=== PATIENT | female | born 1995 | race Caucasian/White ===

== ENCOUNTER 2018-07-03 07:33 | Day surgery (SDC) | payer OTHER ==
[2018-07-02 11:57] VITALS: BMI 21.1
[2018-07-03] MEDS ORDERED: ceFAZolin SODIUM 1 GM VIAL ONE (08:46)
[2018-07-03] MEDS ORDERED: BUPIVACAINE HCL/PF 0.5% (5MG/ML) 10 ML VIAL ONE (10:19)
[2018-07-03] MEDS ORDERED: LIDOCAINE HCL 1%, 10 MG/ML (20ML VIAL) ONE (10:22)
[2018-07-03] MEDS ORDERED: MIDAZOLAM HCL 2 MG/2 ML SINGLE DOSE VIAL ONE ×4 (10:34→10:49)
[2018-07-03] MEDS ORDERED: ceFAZolin SODIUM 1 GM VIAL IVPB ONE (10:52)
[2018-07-03] MEDS ORDERED: PROPOFOL 20 ML ONE (10:53)
[2018-07-03] MEDS ORDERED: BUPIVACAINE HCL/PF 0.5% (5MG/ML) 10 ML VIAL IJ ONE (11:34)
[2018-07-03] MEDS ORDERED: oxyCODONE HCL 5 MG TABLET PO PRN ×2 (11:57)
[2018-07-03] MEDS ORDERED: ONDANSETRON 4 MG/2 ML VIAL IVPB PRN (11:57)
--- NOTE | 2018-07-03 11:59 | OP ---
Operative Note - Note: Operative Date: 07/03/18 Pre-Operative Diagnosis: left hand dorsal gnaglion cyst Operation: excision left wrist dorsal ganglion cyst Post-Operative Diagnosis: Same as Pre-op Surgeon: Chemo Saini
[2018-07-03] MEDS ORDERED: LACTATED RINGERS SOLUTION 1,000 ML IV SCH (12:00)
--- NOTE | 2018-07-03 12:22 | OP ---
DATE OF OPERATION: 07/03/2018 TITLE OF PROCEDURE: Left wrist dorsal ganglion cyst excision. PREOPERATIVE DIAGNOSIS: Left wrist dorsal ganglion cyst. POSTOPERATIVE DIAGNOSIS: Left wrist dorsal ganglion cyst. ATTENDING SURGEON: Chemo Saini MD ASSISTANTS: There were no assistants. ANESTHESIA: General endotracheal anesthesia. The patient is seen in the holding area. The lesion is palpated and marked directly over the lesion on the appropriate left wrist. She is then brought to the operating room and placed in the supine position. Sequential compression stockings were applied. A gram of Ancef was given preoperatively. She is prepped and draped in standard surgical fashion. Her position is carefully checked by surgical and anesthesia teams. Tourniquet is placed. The hand is elevated, Esmarch exsanguinated. Tourniquet is elevated to 220 mmHg pressure. Under tourniquet the dissection is performed. Total tourniquet time for this case is 21 minutes. The transverse incision is made which is 9 mm in its length. The cyst is immediately visible in subcutaneous space. It appears to be coming off of the extensor retinaculum. It is dissected easily off the extensor retinaculum and through the extensor retinaculum. A small rent is identified after excision of the cyst which is repaired with a 4-0 Vicryl suture on the extensor retinaculum. All extensor tendons in the wound are visualized to be intact. The skin is then closed after copious irrigation with normal saline. The closure is performed with 1 single buried deep dermal 4-0 Vicryl suture followed by a series of interrupted simple 5-0 nylon suture. Tourniquet is released. The dressing is applied with Steri-Strips, bulky Kerlix dressing. Hand is elevated. All fingers are pink and viable at the end of the procedure. Patient awoken from anesthesia, transferred to recovery without complication. Ivan [id number]
[2018-07-03 14:23] VITALS: BP 101/61; PULSE 86; TEMP 98
--- NOTE | 2018-07-06 08:52 | PATH ---
Surgical Pathology Report Patient Name: SAMIR ZIEGLER Med. Rec. #: [id number] /Age/Gender: 1995 (Age: 23) / F Account: [id number] Location: [facility] Taken: 07/03/2018 Received: 07/03/2018 Reported: 07/06/2018 Physicians: Chemo Saini Specimen(s) Received GANGLION CYST LEFT WRIST Clinical History Ganglion cyst left wrist Final Diagnosis GANGLION CYST, LEFT WRIST, EXCISION: CONSISTENT WITH GANGLION CYST. Electronically Signed Danuta Corral M.D. Gross Description Received in formalin labeled "ganglion cyst left wrist," is a 1.0 x 0.7 x 0.3 cm rosenbaum-yellow portion of soft tissue, possibly consistent with a cyst. The specimen is submitted in toto in one cassette. 07/03/201807/03/2018
== END 2018-07-03 14:34 | disposition home or self-care (01) ==
LOC: JASU-SURG 07:33
PROVIDERS: ATTEND Plastic Surgery
PROC: 0LB60ZZ Excision of Left Lower Arm and Wrist Tendon, Open Approach (ICD-10-PCS; principal; 2018-07-03 09:00)
DX: M67.432 Ganglion, left wrist (principal)
CPT/HCPCS: 84703; 88304-TC; 94760